=== PATIENT | male | born 1960 | race American Indian/Alaskan Native ===

== ENCOUNTER 2019-07-04 08:40 | Emergency (ER) | payer OTHER ==
[2019-07-04 08:49] VITALS: BP 115/67; PULSE 66; TEMP 97.8; BMI 23.5
[2019-07-04] MEDS ORDERED: IBUPROFEN 600 MG TABLET (FP) PO ONE ×2 (09:03→09:04)
[2019-07-04] MEDS ORDERED: METHOCARBAMOL 500 MG TABLET PO ONE (09:03)
[2019-07-04] MEDS ORDERED: METHOCARBAMOL 500 MG TABLET ONE (09:04)
--- NOTE | 2019-07-04 09:27 | PDOC ---
History of Present Illness - General Chief Complaint: Injury Stated Complaint: FALL Time Seen by Provider: 07/04/19 08:50 History Source: Patient Exam Limitations: Clinical Condition - History of Present Illness Initial Comments: 07/04/19 09:22 Patient with history of diabetes presented with complaint of left calf muscle pain status post overextending left leg while going down a staircase and slipped. Patient reported increased pain to right calf muscle with ambulation. Patient report pain is localized to posterior calf muscle. Denies numbness or tingling sensation. Patient did not take anything for pain. Denies any other symptoms Is this a multiple visit Asthma Patient?: No Timing/Duration: 24 hours Past History - Past Medical History Allergies/Adverse Reactions: Allergies Allergy/AdvReac Type Severity Reaction Status Date / Time No Known Allergies Allergy Verified 07/04/19 08:45 Home Medications: Ambulatory Orders Finasteride 5 mg PO DAILY 07/04/19 Ibuprofen 600 mg PO Q8H PRN #20 tablet 07/04/19 Insulin Glargine,Hum.rec.anlog [Douglas Moncada U-100] unit SQ ASDIR 07/04/19 Methocarbamol [Robaxin -] 500 mg PO BID PRN #14 tablet 07/04/19 Tamsulosin HCl [Flomax] 0.4 mg PO DAILY 07/04/19 COPD: No Diabetes: Yes Disorders: Yes (enlarged prostate) - Psycho Social/Smoking Cessation Hx Smoking History: Never smoked Information on smoking cessation initiated: No Hx Alcohol Use: No Drug/Substance Use Hx: No Review of Systems - Review of Systems Able to Perform ROS?: Yes Is the patient limited Albanian proficient: No Constitutional: No: Weakness HEENTM: No: Symptoms Reported Respiratory: No: Symptoms reported, See HPI, Cough, Orthopnea, Shortness of Breath, SOB with Exertion, SOB at Rest, Stridor, Wheezing, Productive cough, Hemoptysis, Other Cardiac (ROS): No: Symptoms Reported, See HPI, Chest Pain, Edema, Irregular Heart Rate, Lightheadedness, Palpitations, Syncope, Chest Tightness, Other ABD/GI: No: Symptoms Reported Musculoskeletal: Yes: Symptoms Reported, See HPI, Muscle Pain (left calf pain) Integumentary: No: Symptoms Reported, See HPI, Bruising, Erythema Neurological: No: Symptoms reported, Numbness, Paresthesia, Tingling All Other Systems: Reviewed and Negative *Physical Exam - Vital Signs Last Vital Signs Temp Pulse Resp BP Pulse Ox 97.8 F 66 16 115/67 98 07/04/19 08:46 07/04/19 08:46 07/04/19 08:46 07/04/19 08:46 07/04/19 08:46 - Physical Exam 07/04/19 09:26 GENERAL: Well developed, well nourished. Awake and alert in mild acute distress. PULMONARY: No evidence of respiratory distress. MUSCULOSKELETAL : Moderate tenderness over posterior calf muscle. No visible swelling or deformity. No bulging of calf muscle. No tenderness to Achilles tendon insertion site. No tenderness to lower leg or thigh area. No tenderness to ankle. Negative Eddy test. No bony deformities EXTREMITIES: No cyanosis. No clubbing. No edema. Moderate left calf tenderness. SKIN: Warm and dry. Normal capillary refill. No swelling, bruising or ecchymosis to left calf muscle. NEUROLOGICAL: Alert, awake, appropriate. No motor deficits in the lower extremities. Gait is normal with mild limp to left leg from pain PSYCHIATRIC: Cooperative. Good eye contact. Appropriate mood and affect. General Appearance: Yes: Nourished, Appropriately Dressed, Mild Distress ED Treatment Course - RADIOLOGY Radiology Studies Ordered: Category Date Time Status LEG TIB/FIB-LEFT [RAD] Stat Radiology 07/04/19 09:02 Ordered - Medications Given in the ED: ED Medications Discontinued Medications Generic Name Dose Route Start Last Admin Trade Name Freq PRN Reason Stop Dose Admin Ibuprofen 600 mg 07/04/19 09:03 07/04/19 09:08 Motrin - PO 07/04/19 09:04 600 mg ONCE ONE Administration Methocarbamol 500 mg 07/04/19 09:03 07/04/19 09:08 Robaxin - PO 07/04/19 09:04 500 mg ONCE ONE Administration Medical Decision Making - Medical Decision Making 07/04/19 09:23 Patient with history of diabetes presented with complaint of left calf muscle pain status post overextending left leg while going down a staircase and slipped. Patient reported increased pain to right calf muscle with ambulation. Patient report pain is localized to posterior calf muscle. Denies numbness or tingling sensation. Patient did not take anything for pain. Denies any other symptoms Exam significant for moderate tenderness to calf muscle of left leg with no visible swelling or ecchymosis. No tenderness to Achilles insertion site. Negative Eddy test. Patient symptoms likely muscle strain versus less likely tendon rupture. X-ray of left leg ordered to rule out acute pathology. Motrin 60 mg p.o. and Robaxin 500 mg p.o. ordered for pain and spasm. Treat based on imaging results 07/04/19 09:39 X-ray of the tib-fib read by radiology shows no swelling or free air in the calf muscle. No evidence of Achilles rupture on x-ray. Patient symptoms likely muscle strain and stable for discharge on Motrin as needed for pain Robaxin for spasm with orthopedics follow-up for reassessment and possible MRI if symptoms persist Discharge - Discharge Information Problems reviewed: Yes Clinical Impression/Diagnosis: Strain of calf muscle Qualifiers: Encounter type: initial encounter Laterality: left Qualified Code(s): S86.812A - Strain of other muscle(s) and tendon(s) at lower leg level, left leg, initial encounter Condition: Stable Disposition: HOME - Admission No - Additional Discharge Information Prescriptions: Ibuprofen 600 mg PO Q8H PRN #20 tablet PRN Reason: pain Methocarbamol [Robaxin -] 500 mg PO BID PRN #14 tablet PRN Reason: calf muscle pain - Follow up/Referral Referrals: Hussain Bravo DO [Staff Physician] - - Patient Discharge Instructions Patient Printed Discharge Instructions: DI for Calf Muscle Strain Additional Instructions: X-ray of left leg shows no evidence of muscle rupture or swelling to calf area. Pain symptoms likely from calf muscle strain. Take prescribed medication as prescribed for pain and spasm. Apply heat to calf muscle 2-3 times a day as needed for pain. Follow-up referred to orthopedics if no improvement in 3 days for possible MRI - Post Discharge Activity
[2019-07-04] MEDS ORDERED: KETOROLAC TROMETHAMINE 30 MG/1 ML VIAL IM ONE (09:45)
[2019-07-04] MEDS ORDERED: KETOROLAC TROMETHAMINE 30 MG/1 ML VIAL ONE (09:45)
== END 2019-07-04 09:48 | disposition home or self-care (01) ==
LOC: JERFT 08:40
PROC: 3E0233Z Introduction of Anti-inflammatory into Muscle, Percutaneous Approach (ICD-10-PCS; principal; 2019-07-04)
DX: S86.812A Strain of other muscle(s) and tendon(s) at lower leg level, left leg, initial encounter (principal); W10.8XXA Fall (on) (from) other stairs and steps, initial encounter; Y93.89 Activity, other specified; Y92.89 Other specified places as the place of occurrence of the external cause; Y99.8 Other external cause status; E11.9 Type 2 diabetes mellitus without complications; Z79.4 Long term (current) use of insulin; N40.0 Benign prostatic hyperplasia without lower urinary tract symptoms
CPT/HCPCS: 73590-TC-LT-FY; 99284-25